=== PATIENT | male | born 1960 | race Caucasian/White ===

== ENCOUNTER 2021-10-02 17:51 | Emergency (ER) | payer OTHER ==
[~2021-10-02] VITALS: Ht 170.2 cm; Wt 68.0 kg
--- NOTE | 2021-10-02 18:08 | NUR ---
Upon interview, patient was very anxious and appeared to have tardive dyskinesia. Patient reports that he is bipolar and goes to [facility] but doesnt have an appointment for a long time since they are backed up. Patient states that he hasn't slept in many days and nothing works to go to sleep so he drank a small amount of wine. He has been off of his bipolar meds for over a month. Patient states he feels nauseaus.
[2021-10-02] MEDS ORDERED: ONDANSETRON ODT 4 MG TAB.RAPDIS SL ONE (18:15)
[2021-10-02] MEDS ORDERED: ONDANSETRON ODT 4 MG TAB.RAPDIS ONE (18:19)
[2021-10-02] MEDS ORDERED: ONDA4TAB5 PO (18:20)
[2021-10-02] MEDS ORDERED: ZOLP5TAB2 PO (18:20)
--- NOTE | 2021-10-02 18:54 | NUR ---
DCD instructions given to pt. Patient stating that He's not feeling well and as stated "I'm gonna go crazy" Dr. Feliciano informed and as stated pt. stable to go home. At this time pt lacks means of transportation. Charge R.N. notified. dcd instructions provided. Patient on his cell phone arranging back home transportation.
== END 2021-10-02 19:04 | disposition home or self-care (01) ==
LOC: ER 17:53
DX: G47.00 Insomnia, unspecified (principal); R11.0 Nausea; F31.9 Bipolar disorder, unspecified; F41.1 Generalized anxiety disorder
CPT/HCPCS: A4663; Q0162